=== PATIENT | male | born 1950 | race Caucasian/White ===

== ENCOUNTER 2018-01-05 11:09 | Emergency (ER) | payer OTHER ==
[2018-01-05 11:15] VITALS: BP 137/57; PULSE 80; TEMP 98.6
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
[2018-01-05] MEDS ORDERED: IBUPROFEN 600 MG TABLET (FP) PO ONE ×2 (12:10→12:14)
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
[2018-01-05] MEDS ORDERED: KETOROLAC TROMETHAMINE 30 MG/1 ML VIAL IM ONE (14:16)
[2018-01-05] MEDS ORDERED: KETOROLAC TROMETHAMINE 30 MG/1 ML VIAL ONE (14:21)
--- NOTE | 2018-01-05 16:15 | EKG ---
Test Reason : Blood Pressure : / mmHG Vent. Rate : 078 BPM Atrial Rate : 078 BPM P-R Int : 152 ms QRS Dur : 098 ms QT Int : 410 ms P-R-T Axes : 044 -12 042 degrees QTc Int : 467 ms NORMAL SINUS RHYTHM MINIMAL VOLTAGE CRITERIA FOR LVH, MAY BE NORMAL VARIANT BORDERLINE ECG NO PREVIOUS ECGS AVAILABLE Confirmed by Everton Haskins ([id number]) on 01/05/2018 4:15:33 PM Referred By: Confirmed By:Everton Haskins
== END 2018-01-05 15:14 | disposition home or self-care (01) ==
LOC: JER 11:09
PROC: 3E0233Z Introduction of Anti-inflammatory into Muscle, Percutaneous Approach (ICD-10-PCS; principal; 2018-01-05)
DX: M54.2 Cervicalgia (principal); V43.52XA Car driver injured in collision with other type car in traffic accident, initial encounter; Y93.89 Activity, other specified; Y92.410 Unspecified street and highway as the place of occurrence of the external cause
CPT/HCPCS: 71101-TC-RT-FY; 72125-TC; 93005; 93010; 99282-25

== ENCOUNTER 2018-08-18 13:10 | Inpatient (IN) | payer OTHER ==
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
--- NOTE | 2018-08-18 14:02 | PDOC ---
History of Present Illness - General Chief Complaint: CVA/TIA Stated Complaint: BLACKING OUT Time Seen by Provider: 08/18/18 13:43 Past History - Past Medical History Allergies/Adverse Reactions: Allergies Allergy/AdvReac Type Severity Reaction Status Date / Time No Known Allergies Allergy Verified 08/18/18 13:28 Home Medications: Ambulatory Orders Atorvastatin Ca [Lipitor] 20 mg PO HS 01/05/18 Glipizide [Glipizide ER] 5 mg PO HS 01/05/18 Losartan Potassium 50 mg PO BID 01/05/18 Niacin 1,000 mg PO BID 01/05/18 Sitagliptin Phosphate [Januvia] 100 mg PO DAILY 01/05/18 Tramadol HCl [Ultram] 50 mg PO BID PRN #10 tablet MDD 2 tabs 01/05/18 metFORMIN HCL [Metformin ER Osmotic] 1,000 mg PO BID 01/05/18 traZODone HCL [Trazodone HCl] 100 mg PO HS 01/05/18 COPD: No Diabetes: Yes HTN: Yes Hypercholesterolemia: Yes Other medical history: NEUROPATHY - Immunization History Immunization Up to Date: Yes - Suicide/Smoking/Psychosocial Hx Smoking History: Never smoked Hx Alcohol Use: No Drug/Substance Use Hx: No *Physical Exam - Vital Signs Last Vital Signs Temp Pulse Resp BP Pulse Ox 97.6 F 107 H 18 158/88 97 08/18/18 13:30 08/18/18 13:30 08/18/18 13:30 08/18/18 13:30 08/18/18 13:30 NIH Stroke Scale - Last Known Well Date/Time & Onset Date Last Known Well: 08/18/18 Time Last Known Well: 10:00 - Initial Evaluation Level of consciousness: Alert Ask patient the month and their age: Answers both correctly Ask patient to open & close eyes; make fist and let go: Obeys both correctly Best gaze (horizontal eye movement): Normal Visual field testing: No visual field loss Facial paresis (Show teeth/raise eyebrows/close eyes tight): Normal symmetrical movement Motor Function: Left Arm: Normal (essential tremor/ intention tremor bilaterally ) Motor Function: Right Arm: Normal (extends arm 90 (or 45) degrees for 10 seconds without drift Motor Function: Left Leg: Normal (extends leg 30 degrees for 5 seconds without drift) Motor Function: Right Leg: Normal (extends leg 30 degrees for 5 seconds without drift) Limb Ataxia: No ataxia Sensory(Use pinprick test arms,legs,trunk,face/side to side): Normal Best language (Describe picture, name items, read sentences): No Aphasia Dysarthria (read several words): Normal articulation Extinction and Inattention: No abnormality - Total Score NIH Stroke Scale Score: 0 *DC/Admit/Observation/Transfer Diagnosis at time of Disposition: Weakness - Referrals - Patient Instructions - Post Discharge Activity
[2018-08-18 14:36] LABS: BASO % 0.3 % (0-2.0); EOS % 1.5 % (0-4.5); HEMATOCRIT 34.2 % (35.4-49); HEMOGLOBIN 11.8 GM/dL (11.7-16.9); LYMPH % 15.6 % (8-40); MCH 32.1 pg (25.7-33.7); MCHC 34.4 g/dl (32.0-35.9); MEAN CELL VOLUME 93.3 fl (80-96); MEAN PLT VOLUME 7.9 fl (7.5-11.1); MONO % 8.8 % (3.8-10.2); NEUT % 73.8 % (42.8-82.8); PLATELET COUNT 173 K/MM3 (134-434); RBC 3.66 M/mm3 (4.00-5.60); RDW 13.5 % (11.9-15.9); WHITE BLOOD COUNT 6.2 K/mm3 (4.0-10.0)
[2018-08-18 14:54] LABS: INR 1.03 (0.83-1.09); PROTHROMBIN TIME (PATIENT) 12.2 SEC (9.7-13.0)
[2018-08-18 15:02] LABS: ALBUMIN 3.6 g/dl (3.4-5.0); ALK PHOS 69 U/L (45-117); ANION GAP 9 MMOL/L (8-16); BILIRUBIN,TOTAL 0.8 mg/dL (0.2-1); BLOOD UREA NITROGEN 18 mg/dL (7-18); CALCIUM 9.3 mg/dL (8.5-10.1); CHLORIDE 106 mmol/L (98-107); CHOLESTEROL 76 mg/dL (50-200); CO2 23 mmol/L (21-32); CREATININE 1.1 mg/dL (0.55-1.3); GLUCOSE,RANDOM 161 mg/dL (74-106); HDL CHOLESTEROL 40 mg/dL (40-60); POTASSIUM 4.2 mmol/L (3.5-5.1); SGOT/AST 27 U/L (15-37); SGPT/ALT 33 U/L (13-61); SODIUM 138 mmol/L (136-145); TOT PROT 6.5 g/dl (6.4-8.2); TRIGLYCERIDES 53 mg/dL (0-150)
[2018-08-18 15:15] LABS: URINE APPEARANCE CLEAR; URINE BILIRUBIN NEGATIVE (NEGATIVE); URINE COLOR YELLOW; URINE GLUCOSE (UA) 3+ (NEGATIVE); URINE KETONE 1+ (NEGATIVE); URINE LEUK ESTERASE NEGATIVE (NEGATIVE); URINE NITRITE NEGATIVE (NEGATIVE); URINE PROTEIN NEGATIVE (NEGATIVE); URINE UROBILINOGEN 0.2 mg/dL (0.2-1.0)
--- NOTE | 2018-08-18 19:00 | CONSULT ---
Consult - text type - Consultation Consultation Note: NEUROLOGY CONSULT GREATLY APPRECIATED: Events reviewed and discussed with Dr. Amaro and ALIZA Taylor. Family at bedside aiding in history. Followed in last two months by Dr. Rodriguez ([facility]). This 68 yo RH man lives in [facility] with pmhx Type 2 diabetes mellitus (10 years) , hypertension, hyperlipidemia, depression. Ambulates independently. Meds include: atorvastatin, glipizide, losartan, sitagliptin, tramadol, metformin, trazodone. Family saw him during mass giving hand-shake saying "peace with you" with mourning family and then went around and repeated it, forgetting he had done it already. This lasted about 30 seconds, and was followed by fatigue and confusion per the patient. He does not recall that he did the prayers twice. He denies this happening before but does note similar period of memory decline with misplacing items, forgetting names and more recently getting lost while driving. ROS significant for "tremors" his whole life, with more recent gait deterioration in the past year with multiple falls. He recently had MRI of low back done as well as EMGs of the legs. He denies changes in bowel or bladder. FH++ sister notes tremors in hand Head CT (reviewed): Mod atrophy. 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 No bruit. Neck supple. Neg SLR. NEURO: Ox "[facility]." August 18, 2018. TRUMP -> PMURT. 2/3 recall at 3 min. CNII-CNXII: Masked facies. EOM's intact. Full martinez appreciated. No facial. Reduced rapid tongue. Motor: No drift. Intermittent jaw tremor. Sustention tremor L >R. Min Cogwheeling R hand. Decreased MYLES L > R. Reflexes normal. Plantars silent. Coordination: No FTN dystaxia Sensation: reduced vibration in toes. Romberg +/- Gait: Sl wide based, shuffling. Retropulsive. Impression: Mild B/L Cerebral dysfunction (OMS, chronic) Todays behavior could represent TIA;. 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 Peripheral neuropathy (c/w diabetes) Multifactorial gait dysfunction but recent worsening with falls is consistent with progressive extrapyramidal features- a possible treatable component.. Suggest: MRI of brain (C-) and review of prior neuroimaging obtained at [facility] Orthostatic BP's Order B12, TSH, RPR EEG monitoring Admit to telemetry floor for cardiac monitoring Start Sinemet CR 25/100 0.5 tab po TID with meals @ 7,12,5 x 1 week, then increase to 1 pill TID PT eval with walker for gait safety Thank you very much, Demetrius Hardin MD
--- NOTE | 2018-08-18 20:05 | HP ---
Admitting History and Physical - Primary Care Physician PCP: Trista Santos - Admission History of Present Illness: 68 year old male with h/o Type 2 diabetes mellitus, hypertension, hyperlipidemia, depression, peripheral neuropathy presenting with altered mental status, word finding difficulty and chronic gait instability (attributed to peripheral neuropathy with EMG testing). 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 While he was saying his prayers, bystanders noted that he was repetitive and confused and he experienced word finding difficulties. Last normal 9 AM as that was beginning of his restoration session. Last night he was out driving and also became confused, did not know where he ended up and got lost and [facility] AMS/word finding difficulties have never occurred previously. He also admits to generalized malaise/weakness, but no focal symptoms. Of note, he has had chronic imbalance/gait instability 1-2 years which has been managed by his primary doctor and neurologist, he has had EMG testing which is significant for peripheral neuropathy in his feet likely due to the diabetes. He also had MRI of his back done yesterday pending results for workup of his imbalance. Of note his last MRI of the brain was about one month ago, unremarkable per his report. - Past Medical History Cardiovascular: Yes: HTN, Hyperlipdemia Endocrine: Yes: Diabetes Mellitus - Smoking History Smoking history: Never smoked - Alcohol/Substance Use Hx Alcohol Use: No Home Medications - Allergies Allergies/Adverse Reactions: Allergies Allergy/AdvReac Type Severity Reaction Status Date / Time No Known Allergies Allergy Verified 08/18/18 13:28 - Home Medications Home Medications: Ambulatory Orders Atorvastatin Ca [Lipitor] 20 mg PO HS 01/05/18 Glipizide [Glipizide ER] 5 mg PO HS 01/05/18 Losartan Potassium 50 mg PO BID 01/05/18 Niacin 1,000 mg PO BID 01/05/18 Sitagliptin Phosphate [Januvia] 100 mg PO DAILY 01/05/18 Tramadol HCl [Ultram] 50 mg PO BID PRN #10 tablet MDD 2 tabs 01/05/18 metFORMIN HCL [Metformin ER Osmotic] 1,000 mg PO BID 01/05/18 traZODone HCL [Trazodone HCl] 100 mg PO HS 01/05/18 Physical Examination Vital Signs: Vital Signs Temperature 97.6 F 08/18/18 13:30 Pulse Rate 96 H 08/18/18 19:16 Respiratory Rate 18 08/18/18 19:16 Blood Pressure 121/76 08/18/18 19:16 O2 Sat by Pulse Oximetry (%) 97 08/18/18 19:16 Constitutional: Yes: No Distress HENT: Yes: Atraumatic Neck: Yes: Supple Cardiovascular: Yes: Regular Rate and Rhythm Respiratory: Yes: CTA Bilaterally Gastrointestinal: Yes: Normal Bowel Sounds Extremities: Yes: WNL Edema: No Peripheral Pulses WNL: Yes Neurological: Yes: Alert, Oriented Labs: CBC, BMP 08/18/18 14:14 08/18/18 14:25 Imaging - Results Cat Scan: Report Reviewed Problem List - Problems (1) HTN (hypertension) Code(s): I10 - ESSENTIAL (PRIMARY) HYPERTENSION (2) HLD (hyperlipidemia) Code(s): E78.5 - HYPERLIPIDEMIA, UNSPECIFIED (3) Altered mental status, unspecified Code(s): R41.82 - ALTERED MENTAL STATUS, UNSPECIFIED (4) Gait instability Code(s): R26.81 - UNSTEADINESS ON FEET (5) Diabetes Code(s): E11.9 - TYPE 2 DIABETES MELLITUS WITHOUT COMPLICATIONS Assessment/Plan Laboratory Tests 08/18/18 08/18/18 08/18/18 13:37 13:56 14:14 WBC 6.2 RBC 3.66 L Hgb 11.8 Hct 34.2 L MCV 93.3 MCH 32.1 MCHC 34.4 RDW 13.5 Plt Count 173 MPV 7.9 Absolute Neuts (auto) 4.6 Neutrophils % 73.8 Lymphocytes % 15.6 Monocytes % 8.8 Eosinophils % 1.5 Basophils % 0.3 Nucleated RBC % 0 PT with INR INR Sodium Potassium Chloride Carbon Dioxide Anion Gap BUN Creatinine Creat Clearance w eGFR POC Glucometer 157 164 Random Glucose Calcium Total Bilirubin AST ALT Alkaline Phosphatase Creatine Kinase Troponin I Total Protein Albumin Triglycerides Cholesterol Total LDL Cholesterol HDL Cholesterol Urine Color Urine Appearance Urine pH Ur Specific [place] Urine Protein Urine Glucose (UA) Urine Ketones Urine Blood Urine Nitrite Urine Bilirubin Urine Urobilinogen Ur Leukocyte Esterase Blood Type Antibody Screen 08/18/18 08/18/18 08/18/18 14:21 14:25 14:25 WBC RBC Hgb Hct MCV MCH MCHC RDW Plt Count MPV Absolute Neuts (auto) Neutrophils % Lymphocytes % Monocytes % Eosinophils % Basophils % Nucleated RBC % PT with INR 12.20 INR 1.03 Sodium 138 Potassium 4.2 Chloride 106 Carbon Dioxide 23 Anion Gap 9 BUN 18 Creatinine 1.1 Creat Clearance w eGFR 66.18 POC Glucometer Random Glucose 161 H Calcium 9.3 Total Bilirubin 0.8 AST 27 ALT 33 Alkaline Phosphatase 69 Creatine Kinase 142 Troponin I < 0.02 Total Protein 6.5 Albumin 3.6 Triglycerides 53 Cholesterol 76 Total LDL Cholesterol 31 HDL Cholesterol 40 Urine Color Urine Appearance Urine pH Ur Specific [place] Urine Protein Urine Glucose (UA) Urine Ketones Urine Blood Urine Nitrite Urine Bilirubin Urine Urobilinogen Ur Leukocyte Esterase Blood Type A POSITIVE Antibody Screen Negative 08/18/18 08/18/18 15:01 17:45 WBC RBC Hgb Hct MCV MCH MCHC RDW Plt Count MPV Absolute Neuts (auto) Neutrophils % Lymphocytes % Monocytes % Eosinophils % Basophils % Nucleated RBC % PT with INR INR Sodium Potassium Chloride Carbon Dioxide Anion Gap BUN Creatinine Creat Clearance w eGFR POC Glucometer Random Glucose Calcium Total Bilirubin AST ALT Alkaline Phosphatase Creatine Kinase Troponin I Total Protein Albumin Triglycerides Cholesterol Total LDL Cholesterol HDL Cholesterol Urine Color Yellow Urine Appearance Clear Urine pH 5.0 Ur Specific [place] 1.027 Urine Protein Negative Urine Glucose (UA) 3+ H Urine Ketones 1+ H Urine Blood Negative Urine Nitrite Negative Urine Bilirubin Negative Urine Urobilinogen 0.2 Ur Leukocyte Esterase Negative Blood Type A POSITIVE Antibody Screen Active Medications Generic Name Dose Route Start Last Admin Trade Name Freq PRN Reason Stop Dose Admin Carbidopa/Levodopa 0.5 combo 08/19/18 07:00 Sinemet *Cr* 25/100 - PO TID OBINNA
[2018-08-18] MEDS ORDERED: traMADol HCL 50 MG TABLET PO PRN (20:06)
[2018-08-18] MEDS ORDERED: traZODone HCL 50 MG TABLET (FP) ONE (21:36)
[2018-08-18] MEDS: glipiZIDE-XL 5 MG TAB.ER.24 PO SCH (21:41)
[2018-08-18] MEDS: ATORVASTATIN CA 20 MG TABLET (FP) PO SCH (21:42)
[2018-08-18] MEDS: traZODone HCL 100 MG TABLET (FP) PO SCH (21:42)
[2018-08-18] MEDS: LOSARTAN POTASSIUM 50 MG TABLET (FP) PO SCH (21:42)
[2018-08-18] MEDS: HEPARIN NA (PORCINE) 5,000 UNITS/ML 1ML VIAL SQ SCH (21:45)
[2018-08-18] MEDS ORDERED: PATIENT'S OWN MEDICATION (NON-FORMULARY) (Metformin Hcl [Metformin Er Osmotic] 1,000 MG) PO SCH (22:00)
[2018-08-19 02:34] VITALS: BMI 26.0
[2018-08-19 05:59] LABS: BASO % 0.4 % (0-2.0); EOS % 2.9 % (0-4.5); HEMOGLOBIN 11.3 GM/dL (11.7-16.9); LYMPH % 30.8 % (8-40); MCHC 34.3 g/dl (32.0-35.9); MEAN CELL VOLUME 93.3 fl (80-96); MEAN PLT VOLUME 8.1 fl (7.5-11.1); MONO % 12.1 % (3.8-10.2); NEUT % 53.8 % (42.8-82.8); PLATELET COUNT 151 K/MM3 (134-434); RBC 3.54 M/mm3 (4.00-5.60); RDW 13.1 % (11.9-15.9); WHITE BLOOD COUNT 4.6 K/mm3 (4.0-10.0)
[2018-08-19] MEDS: sitaGLIPtin PHOSPHATE 100 MG TABLET (FP) PO SCH (06:28)
[2018-08-19 06:49] LABS: ALBUMIN 3.2 g/dl (3.4-5.0); ALK PHOS 58 U/L (45-117); ANION GAP 6 MMOL/L (8-16); BILIRUBIN,TOTAL 0.7 mg/dL (0.2-1); BLOOD UREA NITROGEN 16 mg/dL (7-18); CALCIUM 9.3 mg/dL (8.5-10.1); CHLORIDE 107 mmol/L (98-107); CO2 29 mmol/L (21-32); CREATININE 1.1 mg/dL (0.55-1.3); GLUCOSE,RANDOM 161 mg/dL (74-106); POTASSIUM 4.1 mmol/L (3.5-5.1); SGOT/AST 25 U/L (15-37); SGPT/ALT 29 U/L (13-61); SODIUM 142 mmol/L (136-145); TOT PROT 5.8 g/dl (6.4-8.2)
[2018-08-19] MEDS ORDERED: PT OWN MED DRAWER 7, Y5N ONE ×2 (08:53→21:27)
[2018-08-19] MEDS: HEPARIN NA (PORCINE) 5,000 UNITS/ML 1ML VIAL SQ SCH ×2 (09:27→21:35)
[2018-08-19] MEDS: LOSARTAN POTASSIUM 50 MG TABLET (FP) PO SCH ×2 (09:28→21:34)
--- NOTE | 2018-08-19 13:39 | EKG ---
Test Reason : Blood Pressure : / mmHG Vent. Rate : 093 BPM Atrial Rate : 093 BPM P-R Int : 146 ms QRS Dur : 096 ms QT Int : 346 ms P-R-T Axes : 032 -14 039 degrees QTc Int : 430 ms NORMAL SINUS RHYTHM WITH SINUS ARRHYTHMIA NONSPECIFIC T WAVE ABNORMALITY ABNORMAL ECG WHEN COMPARED WITH ECG OF 05-JAN-2018 12:49, NO SIGNIFICANT CHANGE WAS FOUND Confirmed by NELSON TERRY, RAZ ([id number]) on 08/19/2018 1:39:17 PM Referred By: Confirmed By:RAZ DAMON MD
--- NOTE | 2018-08-19 16:46 | PN ---
Progress Note, Physician History of Present Illness: doing well - Current Medication List Current Medications: Active Medications Atorvastatin Calcium (Lipitor -) 20 mg PO [facility] Last Admin: 08/18/18 21:42 Dose: 20 mg Carbidopa/Levodopa (Sinemet *Cr* 25/100 -) 0.5 combo PO TIDCM [facility] Stop: 08/21/18 17:31 Last Admin: 08/19/18 12:35 Dose: 0.5 combo Carbidopa/Levodopa (Sinemet *Cr* 25/100 -) 1 combo PO TIDCM [facility] Glipizide (Glucotrol Xl -) 5 mg PO [facility] Last Admin: 08/18/18 21:41 Dose: 5 mg Heparin Sodium (Porcine) (Heparin -) 5,000 unit SQ BID [facility] Last Admin: 08/19/18 09:27 Dose: 5,000 unit Losartan Potassium (Cozaar -) 50 mg PO BID [facility] Last Admin: 08/19/18 09:28 Dose: 50 mg Niacin (Niacin) 1,000 mg PO BID [facility] Non-Formulary Medication (Metformin Hcl [Metformin Er Osmotic]) 1,000 mg PO BID [facility] Sitagliptin Phosphate (Januvia -) 100 mg PO DAILY@0700 [facility] Last Admin: 08/19/18 06:28 Dose: 100 mg Tramadol HCl (Ultram -) 50 mg PO BID PRN PRN Reason: PAIN Trazodone HCl (Desyrel -) 100 mg PO [facility] Last Admin: 08/18/18 21:42 Dose: 100 mg - Objective Vital Signs: Vital Signs Temperature 98.2 F 08/19/18 14:05 Pulse Rate 73 08/19/18 14:05 Respiratory Rate 16 08/19/18 14:05 Blood Pressure 140/72 08/19/18 14:05 O2 Sat by Pulse Oximetry (%) 98 08/19/18 09:00 Constitutional: Yes: No Distress HENT: Yes: Atraumatic Neck: Yes: Supple Cardiovascular: Yes: Regular Rate and Rhythm Respiratory: Yes: CTA Bilaterally Gastrointestinal: Yes: Normal Bowel Sounds Extremities: Yes: WNL Edema: No Neurological: Yes: Alert, Oriented Labs: CBC, BMP 08/19/18 05:30 08/19/18 05:30 INR, PTT INR 1.03 (0.83-1.09) 08/18/18 14:25 Problem List - Problems (1) HTN (hypertension) Assessment/Plan: on meds monitor Code(s): I10 - ESSENTIAL (PRIMARY) HYPERTENSION (2) HLD (hyperlipidemia) Assessment/Plan: on meds Code(s): E78.5 - HYPERLIPIDEMIA, UNSPECIFIED (3) Altered mental status, unspecified Assessment/Plan: doing well Code(s): R41.82 - ALTERED MENTAL STATUS, UNSPECIFIED (4) Gait instability Assessment/Plan: PT eval mri pending Code(s): R26.81 - UNSTEADINESS ON FEET (5) Diabetes Assessment/Plan: on meds monitor bgms Code(s): E11.9 - TYPE 2 DIABETES MELLITUS WITHOUT COMPLICATIONS
--- NOTE | 2018-08-19 21:27 | PN ---
Progress Note (short form) - Note Progress Note: NEUROLOGY FOLLOW-UP: Events reviewed, patient examined. Pt is able to recall more memories of both the events at the and his difficulty driving the prior night. Notes improvement in tremor and walking today. First full day of L-Dopa 50 mg TID TSH Nl. R24=251 pg% EXAM: Awake, alert, Ox [facility]. August 19, 2018. Recalls 2 of 3 at 3 mins More expressive, voice stronger. No jaw tremor today Decreased rest tremor (4-5 cps) L>R Good MYLES's. Normal strength. + Cogwheel rigidity Absent AJ's Decreased vibration to ankles Gait: improved posture and strides. Still retropulsive getting OO bed. IMP: Parkinson's disease- better on L-Dopa Essential tremor. Diabetic Peripheral neuropathy. Mild underlying OMS. Transient worsening of uncertain etiology (TME, hypoglycemia, hypotension, TGA?) Low B12. Suggest: Repeat B12, Homocysteine, methylmalonic acid then supplement B12 empirically Increase Sinemet CR to 25/100 TID @ 7, 12 and 5 at discharge. Neuro f/u Dr. Eugene Rodriguez. Thank you very much, Demetrius Hardin MD
[2018-08-19] MEDS: traZODone HCL 100 MG TABLET (FP) PO SCH (21:34)
[2018-08-19] MEDS: ATORVASTATIN CA 20 MG TABLET (FP) PO SCH (21:34)
[2018-08-19] MEDS: glipiZIDE-XL 5 MG TAB.ER.24 PO SCH (21:35)
[2018-08-19] MEDS: NIACIN 500 MG TABLET PO SCH (21:35)
[2018-08-20] MEDS: sitaGLIPtin PHOSPHATE 100 MG TABLET (FP) PO SCH (06:23)
[2018-08-20] MEDS ORDERED: metFORMIN HCL 500 MG TABLET (FP) PO SCH (07:00)
[2018-08-20] MEDS ORDERED: PT OWN MED DRAWER 7, Y5N ONE (09:31)
[2018-08-20] MEDS: HEPARIN NA (PORCINE) 5,000 UNITS/ML 1ML VIAL SQ SCH (09:37)
[2018-08-20] MEDS: NIACIN 500 MG TABLET PO SCH (09:37)
[2018-08-20] MEDS: LOSARTAN POTASSIUM 50 MG TABLET (FP) PO SCH (09:37)
[2018-08-20 09:42] VITALS: BP 121/67; PULSE 82; TEMP 97.5
--- NOTE | 2018-08-20 11:04 | DS ---
Physical Examination Vital Signs: Vital Signs Temperature 97.5 F L 08/20/18 09:42 Pulse Rate 82 08/20/18 09:42 Respiratory Rate 20 08/20/18 09:42 Blood Pressure 121/67 08/20/18 09:42 O2 Sat by Pulse Oximetry (%) 97 08/20/18 09:42 Labs: CBC, BMP 08/19/18 05:30 08/19/18 05:30 Discharge Summary Reason For Visit: WORD FINDING DIFFICULTY WEAKNESS Current Active Problems Altered mental status, unspecified (Acute) Diabetes (Acute) Gait instability (Acute) HLD (hyperlipidemia) (Acute) HTN (hypertension) (Acute) Weakness (Acute) Word finding difficulty (Acute) Condition: Guarded - Instructions - Home Medications Comprehensive Discharge Medication List: Ambulatory Orders Atorvastatin Ca [Lipitor] 20 mg PO HS 01/05/18 Glipizide [Glipizide ER] 5 mg PO HS 01/05/18 Losartan Potassium 50 mg PO BID 01/05/18 Niacin 1,000 mg PO BID 01/05/18 Sitagliptin Phosphate [Januvia] 100 mg PO DAILY 01/05/18 Tramadol HCl [Ultram] 50 mg PO BID PRN #10 tablet MDD 2 tabs 01/05/18 metFORMIN HCL [Metformin ER Osmotic] 1,000 mg PO BID 01/05/18 traZODone HCL [Trazodone HCl] 100 mg PO HS 01/05/18 Carbidopa/Levodopa *Cr* 25/100 [Sinemet *Cr* 25/100 -] 1 combo PO TIDCM #60 tablet.er 08/20/18
== END 2018-08-20 13:42 | disposition home or self-care (01) | DRG 57 ==
LOC: JER 13:10 → JERBED 15:25 → OBSVTOIN 20:05 → J4S 20:14
PROVIDERS: ADMIT Internal Medicine; ATTEND Internal Medicine
DX: G20 Parkinson's disease (principal); I10 Essential (primary) hypertension; E78.5 Hyperlipidemia, unspecified; F32.9 Major depressive disorder, single episode, unspecified; R26.9 Unspecified abnormalities of gait and mobility; E11.42 Type 2 diabetes mellitus with diabetic polyneuropathy; R26.81 Unsteadiness on feet; R41.82 Altered mental status, unspecified; G45.4 Transient global amnesia
CPT/HCPCS: 36415; 70450-TC; 70551-TC; 80053; 81003; 82136; 82465; 82550; 82553; 82607; 82962; 83718; 83721; 83918; 84443; 84478; 84484; 85025; 85610; 86593; 86850; 86900; 86901; 87086; 93005; 93010; 97116-GP; 97161-GP; 99285-25; G0378; J1644

== ENCOUNTER 2018-11-30 13:01 | Emergency (ER) | payer OTHER | END 2018-11-30 14:50 | disposition short-term general hospital (02) | LOC: JER 13:01 ==